=== PATIENT | male | born 1980 | race Caucasian/White ===

== ENCOUNTER 2020-11-26 05:54 | Day surgery (SDC) | payer SELFPAY ==
--- NOTE | 2020-11-24 10:47 | EKG12_ITS ---
Test Reason : PREOP Blood Pressure : / mmHG Vent. Rate : 062 BPM Atrial Rate : 062 BPM P-R Int : 118 ms QRS Dur : 094 ms QT Int : 388 ms P-R-T Axes : 028 045 043 degrees QTc Int : 393 ms Normal sinus rhythm Normal ECG Confirmed by FREEMAN BERNARD, LAURA ([id number]), non linear editor JANIE JOHNSON ([id number]) on 11/25/2020 8:10:18 AM Referred By: Kush Johnson Confirmed By:LAURA MILLARD MD
--- NOTE | 2020-11-24 11:20 | RAD_ITS ---
STUDY: X-RAY CHEST REASON FOR EXAM: Male, 40 years old. Preop for knee surgery TECHNIQUE: PA and 2 lateral views of the chest. COMPARISON: None. FINDINGS: The lungs are clear and expanded. There is no demonstrated pleural abnormality. Normal size heart. Normal mediastinum and brett. Normal visualized pulmonary arteries. Normal visualized aortic arch and descending thoracic aorta. Normal visualized thoracic spine. Normal visualized ribs, clavicles, and shoulders. There is no demonstrated abnormality of the visualized soft tissue structures of the upper abdomen. RAD/Chest PA and Lateral IMPRESSION: Normal x-ray examination of the chest. Electronically Signed: Tong Reed MD at 11:46 EDT , Service support ,
[2020-11-24 13:55] LABS: Absolute Lymphocyte Count 1.76 X10^3/uL (0.83-4.51); Basophil# 0.04 X10^3/uL; Basophil% 0.5 % (0-1); Eosinophil# 0.06 X10^3/uL; Eosinophils% 0.7 % (0-5); Hematocrit 46.5 % (40-54); Hemoglobin 15.1 g/dL (13.0-16.5); Lymphocyte # 1.76 X10^3/ul (4.0); Lymphocyte % 20.8 % (19-41); Mean Corp Hgb Conc 32.5 g/dL (32-36); Mean Corpuscular Hgb 31.3 pg (27.0-32.0); Mean Corpuscular Volume 96.5 fL (80-94); Mean Platelet Vol. 9.7 fl (6.2-12.0); Monocyte# 0.61 X10^3/uL; Monocyte% 7.2 % (0-10); NRBC Flagged by Analyzer 0 % (0-5); Neutrophil # 5.95 X10^3/uL (2.7-7.7); Neutrophil % 70.2 % (47-70); Platelet Count 325 K/mm3 (150-450); RBC Distribution Width CV 12.8 % (11.6-14.6); RBC Distribution Width SD 45.6 fl (35.1-43.9); Red Blood Count 4.82 M/mm3 (4.6-6.2); White Blood Count 8.5 K/mm3 (4.4-11.0)
[2020-11-24 14:07] LABS: Prothrombin Time (Protime)PT. 12.6 SECONDS (11.7-14.9)
[2020-11-24 14:08] LABS: Partial Thromboplast Time 31.8 Seconds (24.1-36.2)
[2020-11-24 14:21] LABS: Anion Gap 6 (5-15); BUN 10 mg/dL (7-18); BUN/Creat Ratio 12.1 RATIO (10-20); Calcium,Total 9.3 mg/dL (8.5-10.1); Chloride 102 mmol/L (98-107); Creatinine, Serum 0.83 mg/dL (0.70-1.30); EST Glomerular Filtration Rate 108 mL/min (>60); Est Glom Filt Rate - Afr Amer 131 mL/min (>60); Glucose 84 mg/dL (74-106); Potassium 3.8 mmol/L (3.5-5.1); Sodium Level 135 mmol/L (136-145)
[2020-11-26 06:25] VITALS: BP 122/78; PULSE 71; RESP 16; TEMP 36.9; O2SAT 97; BMI 24.5
[2020-11-26] MEDS: Lactated Ringers 1,000 ML 100 ML IV ×2 (06:33→09:46)
[2020-11-26] MEDS: Cefazolin 2 GM in 0.9% Normal Saline 100 ML IV (07:32)
--- NOTE | 2020-11-26 07:35 | RAD_ITS ---
STUDY: X-RAY - RIGHT ANKLE REASON FOR EXAM: ORIF of right lateral malleolar and right talar fractures. TECHNIQUE: 25 intraoperative images of the ankle. COMPARISON: None. FINDINGS: There are 2 orthopedic screws transfixing a medial malleolar fracture in anatomical alignment and position. There are 2 threaded screws transfixing a talar fracture in anatomical alignment and position. Electronically Signed: Clinton Schaffer MD at 11:08 EDT Tel , Service support , RAD/Ankle min 3 Views
[2020-11-26] MEDS: Bupivacaine Mpf 0.5% 30 ML VIAL (08:02)
[2020-11-26 09:45] VITALS: BP 122/78; BP 123/93; PULSE 70; RESP 16; TEMP 37; O2SAT 100
--- NOTE | 2020-11-26 09:47 | DCINST_ITS ---
Discharge Diet: Light diet - advance as tolerated Discharge Activity: May Not Drive, May Not Shower, Use Walker, Use Crutches Weight Bearing Status: No weight bearing Keep extremity elevated above heart level: Right Leg Additional Activity Instructions:: 1. Keep dressing to right leg clean, dry, intact. Do not get dressing wet. Do not remove dressing. If get dressing wet, call office for further instruction. I recommend sponge bathing only at this time. 2. Ice around right knee 30 minutes every hour while awake as needed for pain. 3. Elevate right foot above level of heart as often as possible. Right foot should only be done for transfers and when using the restroom. Her right foot should be elevated at all other times. 4. Begin taking doxycycline (antibiotic) tomorrow, November 27, 2020 1 pill twice a day as instructed on the bottle. 5. Begin taking aspirin 81 mg tomorrow, November 27, 2020 1 pill twice a day. 6. Begin taking oxycodone today, November 26, 2020 as needed for pain. You may supplement with extra strength Tylenol. Do not exceed 3000 mg of Tylenol in a 24-hour period. 7. No walking/standing/placing any weight on right foot. Use crutches/walker/wheelchair/knee scooter for assistance. 8. Follow-up with Dr. Johnson in 1 week as previously scheduled. Call your doctor if your incision/area has: Sudden Increased Bleeding Call your doctor if you observe: Fever of 101 or Higher, Coldness, Increased Pain, Inability to have a bowel movement, Shortness of breath, Chest pain, Increased palpitations (irregular heartbeat), Calf discomfort, Uncontrolled pain Cleanse incision/area with: Keep Dressing Clean & Dry Allergies/Adverse Reactions: Allergies codeine Allergy (Verified 11/23/20 14:11) Hives Medications to take at Discharge Acetaminophen [Tylenol Extra Strength] 1,000 mg PO TID 11/23/20 Aspirin [Aspirin, Baby] 81 mg PO BID 11/23/20 Calcium Carbonate [Calcium] 600 mg PO BID 11/23/20 Cholecalciferol (Vitamin D3) [Vitamin D3] 125 mcg PO BID 11/23/20 Oxycodone [Oxyir] 5 mg PO Q4H PRN PRN 11/23/20 Primary Care Physician: Care Physician,No Primary [Primary Care Provider] - Test Results: Test results from this visit will be discussed in further detail at your follow- up appointment, if applicable. Please Follow Up With: Kush Johnson DPM When: in one week as previously scheduled Proposed Discharge Date: 11/26/20
--- NOTE | 2020-11-26 09:51 | PCM.OPRPT ---
Problem List (1) Fracture of talus of right ankle, closed Status: Acute Qualifiers: Encounter type: initial encounter Talus location: body Fracture alignment: displaced Qualified Code(s): S92.121A - Displaced fracture of body of right talus, initial encounter for closed fracture (2) Fracture of medial malleolus of right tibia Status: Acute Qualifiers: Encounter type: initial encounter Fracture type: closed Fracture alignment: nondisplaced Qualified Code(s): S82.54XA - Nondisplaced fracture of medial malleolus of right tibia, initial encounter for closed fracture Report of Operation Date of Procedure: 11/26/20 Pre-Operative Diagnosis: 1. Right talar body fracture, displaced, closed. 2. Right medial malleolus fracture, nondisplaced, closed Post-Operative Diagnosis: Same as preoperative Surgery/Procedure Performed:: 1. Right talus open reduction with internal fixation of talar body fracture. 2. Right open reduction with internal fixation of medial malleolus fracture. Description of Surgical Findings:: Consistent with diagnosis. Reduction of deformity achieved and held with internal fixation. automobile damage field appraiser: Assist,RN First Type of Anesthesia:: General/Regional - With a popliteal and saphenous block given to the right lower extremity preoperatively. Anesthesiologist: Ken Saucedo Special Medications: 2 g of Ancef given preoperatively for antibiotic prophylaxis Specimen's removed: None Drains: None Estimated Blood Loss (mL): 15 Description of Procedure: Hemostasis: Pneumatic thigh tourniquet placed at the level of the right thigh at 275 mmHg for 30 minutes Estimated blood loss is 15 mL Materials: #1. Arthrex 4.0 x 50 mm cannulated partially-threaded screw x2. 2. Arthrex 3.5 x 44 mm compression FT screw x2. 3. Size 0 Vicryl. 4. Size 2-0 Vicryl. 5. Size 3-0 Vicryl. 6. Size 3-0 nylon Injectables: None Complications: None Condition: Stable Indications: Patient is a 40-year-old male who suffered a right medial malleolus and talar fracture on November 14, 2020. Patient was up on a ladder when he lost his balance and fell. Patient felt immediate pain in his right ankle at that time. Patient presented to the emergency department after the injury, where x-rays were ordered. Patient was then referred to my office for further evaluation. Patient initially saw Edna Dangelo, PA-C, on 11/17/20 for initial evaluation. A CT scan was ordered, and patient was referred to me for further evaluation. I initially saw the patient on November 18, 2020. At that time, I reviewed the CT scan with the patient, revealing a displaced talar body fracture and a nondisplaced medial malleolus fracture. I discussed the surgical and conservative therapies with the patient at that time. Due to the fractures that were present, I recommended surgical intervention. I discussed with the patient surgical intervention would be an open reduction with internal fixation of the talus fracture and the medial malleolus fracture. I discussed the risks, benefits, possible outcomes and possible complications of the procedure were discussed. These include but not limited to delayed or nonhealing wounds, delayed or nonhealing bone, DVT, infection, decreased function of limb, continued pain, damage to surrounding structures, loss of limb, loss of life. Furthermore, since patient is a smoker, he is at a higher risk of postoperative complications. All the patient's questions were answered to his satisfaction and all of his concerns were addressed. No guarantees were made as to the outcome of the procedure. Patient understood all aspects of the procedure, and was agreeable to proceed with the surgical intervention. Due to the significant edema that was present along with fracture blisters, surgery was delayed and a compressive dressing was placed over the right lower extremity. Patient then saw me again on November 24, 2020. A significant reduction in the edema was noted and healing of the fracture blisters was present. Due to this, surgery was planned for today, November 26, 2020. Operative report: Before the patient was brought to the operating room, the risks, benefits, possible outcomes, possible complications of the procedure discussed with the patient once again. All the patient's questions were answered to his satisfaction and all of his concerns were addressed. No guarantees were made as to the outcome of the procedure. Patient understood all aspects of the procedure, and consent was then signed by the patient. Before the patient brought to the operating room, the anesthesiologist administered a popliteal block to the right lower extremity. Patient was then brought to the operating room and placed on the operating table in the supine position. After a timeout, 2 g of Ancef was given preoperatively for antibiotic prophylaxis. General anesthesia was obtained, anesthesia took control of the airway and the IV access. Next, a well-padded pneumatic thigh tourniquet was placed the level of the right thigh. The right foot, ankle, leg were then scrubbed, prepped, draped in the usual sterile manner. At this time, radiographic evaluation was used to determine the level of the ankle joint, level of the medial malleolus fracture, level of the distal tip of the medial malleolus, and level of the talus fracture. These were then all marked on the patient. Attention was then directed to the medial malleolus of the right ankle. At this time, live radiographic evaluation was used to insert 2 K wires from the distal tip of the medial malleolus extending superiorly into the medullary canal of the tibia. Care was taken make sure that these K wires went past the fracture site. Once adequate positioning these K wires were had and reduction of the medial malleolus fracture was held in place, a stab incision was made at the K wire and skin juncture of both of these K wires. Blunt dissection was continued down deep to the level of the bone. These K wires then measured and at this time a 4.0 x 50 mm partially-threaded cannulated screw was placed over each K wire and inserted in standard fashion. Of note during insertion of each screw was the adequate compression of the medial malleolus fracture. Furthermore, no shifting of the fracture occurred during insertion of the screws. Once both screws were fully inserted, the temporary fixation was then removed. Radiographic evaluation was then performed. The screws was noted to neither be too long or too short and were noted to be well contained within the tibia. Furthermore, reduction of the medial malleolus fracture was noted at this time. The surgical sites were then irrigated with copious amounts of irrisept and normal sterile saline. The skin of the surgical sites were reapproximated and coapted utilizing size 3-0 nylon in a simple interrupted and horizontal mattress fashion. At this time, the right lower extremity was elevated and exsanguinated via Esmarch and inflation of the pneumatic thigh tourniquet was performed to 275 mmHg. Attention was then directed to the anterior lateral aspect of the right ankle at the anterior lateral border of the fibula. At this time, a linear longitudinal incision was made starting at the anterior lateral aspect of the midportion of the lateral malleolus extending distally approximately 3 cm towards the fourth metatarsal base. This incision was deepened utilizing sharp and blunt dissection. Care was taken to retract all vital neural and vascular structures. All bleeders were cauterized and ligated as necessary. At this time, the ankle joint capsule was identified and transected in a similar fashion to that the skin incision. The talar body was then identified. At this time, a reduction clamp was used to reduce the talar body fracture. Once adequate reduction was had and confirmed upon radiographs, the K wire for the cannulated screws was inserted from anterior lateral to posterior medial to be as perpendicular to the talar body fracture as possible. Care was taken make sure that this K wire was not in the articular surface of the ankle joint or the subtalar joint. Once adequate positioning of this K wire was had, drilling was performed in preparation. This was then measured and at this time the Arthrex 3.5 x 44 mm FT compression screw was placed over the K wire and inserted in standard fashion. Of note during insertion of the screw was the adequate compression of the talus fracture. Furthermore, no shifting of the talus fracture occurred during insertion of the screw. Once the screw was fully inserted, the reduction clamp and temporary fixation was then removed. Radiographic evaluation was then performed. Reduction of the talar body fracture was noted when compared to preoperative assessment. The ankle joint mortise appeared intact at this time. The subtalar joint appeared intact at this time. At this time, a K wire was inserted in parallel fashion to the first K wire and an anterior lateral to posterior medial direction across the talar body. Once adequate positioning of this K wire was had and confirmed upon radiographic evaluation, this was then measured, and a second 3.5 x 44 mm FT compression screw was placed over the K wire inserted in standard fashion. Once this screw was fully inserted, all temporary fixation was then removed. Radiograph evaluation was then performed. The talar body fracture was noted to be reduced when compared to preoperative assessment. The screws in the talus noted to neither be too long or too short, and were noted to hold the fracture in correct alignment. The screws were not penetrating the subtalar joint. The ankle joint mortise was noted to be intact. The subtalar joint was noted to be intact. The medial malleolus fracture was noted to be reduced and held with internal fixation. The screws of the medial malleolus was noted in either be too long or too short and were well contained within the tibia. The surgical site on the anterior lateral portion was irrigated with copious amounts of irrisept and normal sterile saline. The pneumatic thigh tourniquet was then released and a prompt hyperemic response noted to the entirety of the right lower extremity. All bleeders were cauterized and ligated as necessary. The periosteal capsular structures were reapproximated coapted utilizing size 0 Vicryl. The subcutaneous tissues were reapproximated coapted utilizing size 2-0 Vicryl and 3-0 Vicryl. The skin was reapproximated coapted utilizing size 3-0 nylon in a simple interrupted and horizontal mattress fashion. Each surgical site was then dressed with Betadine soaked gauze, and a dry sterile dressing consisting of 4 x 4 gauze, ABD pads, wrapped with Kerlix. The right foot and ankle were then wrapped with an Farooq bandage. Next, a stockinette was placed over the right lower extremity. Cast padding was wrapped from the metatarsal heads extending proximally to the level just distal to the tibial tuberosity. A posterior splint was fashioned to the right lower extremity and was adhered to the right lower extremity utilizing Farooq bandages. Neurovascular status was assessed at the end of the application and deemed intact to the right lower extremity. The patient tolerated the anesthesia of the procedure well and was transported to the PACU with vital signs stable and neurovascular status intact to the right lower extremity. After period of postoperative monitoring, patient will be discharged home with written and oral instructions for wound care and follow-up. - Complications None - Admit VTE Documentation VTE Present on Admission: No - Aspirin 81 mg twice daily to begin 11/27/2020 for DVT prophylaxis
[2020-11-26 10:00] VITALS: BP 117/80; BP 122/78; PULSE 71; RESP 16; O2SAT 100
--- NOTE | 2020-11-26 10:00 | RAD_ITS ---
STUDY: X-RAY - RIGHT ANKLE REASON FOR EXAM: Status post ORIF medial malleolar and talar fractures. TECHNIQUE: 3 view(s) of the ankle. COMPARISON: Intraoperative images obtained the same day. FINDINGS: There are 2 orthopedic screws transfixing a medial malleolar fracture in anatomical alignment and position. There is a fibroxanthoma in the lateral aspect of the distal tibial diametaphysis. Normal tibiotalar articulation and ankle mortise. There are 2 orthopedic screws transfixing a talar body/dome fracture in anatomical alignment and position. The visualized subtalar, talonavicular, calcaneocuboid and tarsal articulations are normal. There is an overlying cast. RAD/Ankle min 3 Views IMPRESSION: ORIF of medial malleolar and talar fractures. Electronically Signed: Clinton Schaffer MD at 10:32 EDT Tel , Service support ,
[2020-11-26 10:15] VITALS: BP 122/78; BP 136/96; PULSE 73; PULSE 80; RESP 16; TEMP 36.4; O2SAT 100
[2020-11-26 11:15] VITALS: BP 122/78; BP 132/88; PULSE 80; RESP 16; TEMP 36.8; O2SAT 100
== END 2020-11-26 11:16 | disposition home or self-care (01) ==
LOC: SDC 05:55 → AC 05:55
PROVIDERS: Referring Provider Family Medicine; Visit Provider Podiatrist Foot & Ankle Surgery
DX: S92.121A Displaced fracture of body of right talus, initial encounter for closed fracture (principal); S82.54XA Nondisplaced fracture of medial malleolus of right tibia, initial encounter for closed fracture; W11.XXXA Fall on and from ladder, initial encounter; Y93.9 Activity, unspecified; Y92.9 Unspecified place or not applicable; Y99.9 Unspecified external cause status; F17.218 Nicotine dependence, cigarettes, with other nicotine-induced disorders; Z79.82 Long term (current) use of aspirin
CPT/HCPCS: 01480; 27766; 28445; 64445; 36415; 71046; 73610; 76000; 80048; 83036; 85025; 85610; 85730; 87426; 93005; C1713; C9803; J7120; J2405